=== PATIENT | female | born 1950 | race Caucasian/White ===

== ENCOUNTER → 2019-05-19 | Outpatient (CLI) | payer MEDICARE, OTHER ==
[2019-05-19 15:20] LABS: Basophils % (A) 0 %; Eosinophils # (A) 0.1 k/uL (0-0.7); Eosinophils % (A) 3 %; HCT 40.3 % (34.0-46.0); HGB 13.7 gm/dL (11.4-16.0); Lymphocytes % (A) 21 %; MCH 31.5 pg (25.0-35.0); MCV 92.5 fL (80.0-100.0); Mean Platelet Volume 6.6; Monocytes # (A) 0.3 k/uL (0-1.0); Monocytes % (A) 5 %; Neutrophils # (A) 3.4 k/uL (1.3-7.7); Neutrophils % (A) 69 %; Platelet Count 155 k/uL (150-450); RBC 4.35 m/uL (3.80-5.40); RDW 13.8 % (11.5-15.5); WBC 4.9 k/uL (3.8-10.6)
[2019-05-19 15:26] LABS: Partial Thromboplastin Time 26.4 sec (22.0-30.0); Prothrombin Time 10.3 sec (9.0-12.0)
[2019-05-19 19:23] LABS: African American GFR (CKD) 54.2 (60.0-200.0); Anion Gap 9.4 mmol/L (4.00-12.00); Carbon Dioxide 24.6 mmol/L (21.6-31.8); Potassium 4.6 mmol/L (3.5-5.5)
== END | disposition home or self-care (01) ==
LOC: LABWHC1 14:12
PROVIDERS: ATTEND Internal Medicine Nephrology
DX: R80.9 Proteinuria, unspecified (principal)
CPT/HCPCS: 36415; 80051; 82565; 84520; 85025; 85610; 85730

== ENCOUNTER 2019-05-21 09:13 | Day surgery (SDC) | payer MEDICARE, OTHER ==
[2019-05-21 09:31] VITALS: RESP 18
[2019-05-21] MEDS ORDERED: ALPRAZolam 0.5 MG TAB PO STA (09:39)
[2019-05-21 11:31] VITALS: TEMP 97.5
--- NOTE | 2019-05-21 11:55 | P.NPCON ---
History of Present Illness - Reason for Consult chronic renal failure - History of Present Illness Reason for consultation: Chronic kidney disease History of present illness: Patient is a 69-year-old female seen in renal consultation for chronic kidney disease. Patient has chronic kidney disease stage II/3 is secondary to diabetic kidney disease. Patient states she was diagnosed with diabetes in 2003. She was noted to have proteinuria on urinalysis outpatient. She was subsequently scheduled for a kidney biopsy which was completed this morning. She is currently seen and examined in the observation unit. She denies any chest pain or shortness of breath. No hematuria or dysuria. No chest pain or shortness of breath. No edema. Hemodynamically she stable. No active complaints at this time. Patient denies regular use of nonsteroidals. Denies any family history of renal disease. Vital signs are stable. General: The patient appeared well nourished and normally developed. HEENT: Head exam is unremarkable. Neck is without jugular venous distension. LUNGS: Lungs are clear to auscultation and percussion. Breath sounds decreased. HEART: Rate and Rhythm are regular. First and second heart sounds normal. No murmurs, rubs or gallops. ABDOMEN: Abdominal exam reveals normal bowel sounds. Non-tender and non- distended. No evidence of peritonitis. EXTREMITITES: No clubbing, cyanosis, or edema. Past Medical History Past Medical History: Atrial Fibrillation, Coronary Artery Disease (CAD), Diabetes Mellitus, Hyperlipidemia, Hypertension, Osteoarthritis (OA), Renal Disease, Thyroid Disorder Additional Past Medical History / Comment(s): gout History of Any Multi-Drug Resistant Organisms: None Reported Past Surgical History: Cholecystectomy, Coronary Bypass/CABG, Orthopedic Surgery Additional Past Surgical History / Comment(s): eye surgery, shoulder surgery, parathyroidectomy, bowel surgery Past Anesthesia/Blood Transfusion Reactions: Postoperative Nausea & Vomiting (PONV) Additional Psychological History / Comment(s): claustaphobia Smoking Status: Never smoker Past Alcohol Use History: None Reported Past Drug Use History: None Reported - Past Family History Father Family Medical History: Coronary Artery Disease (CAD), Diabetes Mellitus Medications and Allergies Home Medications Medication Instructions Recorded Confirmed Type Allopurinol [Zyloprim] 100 mg PO BID 04/29/19 04/29/19 History Apixaban [Eliquis] 5 mg PO BID 04/29/19 05/21/19 History Cetirizine HCl [Zyrtec] 10 mg PO DAILY 04/29/19 05/21/19 History Diphenoxylate HCl/Atropine 2 tab PO QID PRN 04/29/19 05/21/19 History [Lomotil 2.5-0.025 mg Tablet] Ferrous Sulfate [Feosol] 325 mg PO DAILY 04/29/19 05/21/19 History Furosemide [Lasix] 40 mg PO DAILY 04/29/19 05/21/19 History Liraglutide [Victoza 2-Crow] 1.8 mg SQ DAILY 04/29/19 04/29/19 History Potassium Chloride [Klor-Con 20] 20 meq PO DAILY 04/29/19 05/21/19 History Rosuvastatin Calcium [Crestor] 40 mg PO DAILY 04/29/19 05/21/19 History metFORMIN HCL [Glucophage] 500 mg PO BID 04/29/19 04/29/19 History ALPRAZolam [Xanax] 0.5 mg PO DAILY PRN 05/08/19 05/08/19 History Acetaminophen [Tylenol Extra 500 mg PO DAILY 05/08/19 05/21/19 History Strength] Krill/Carbon-3/Dha/Epa/Lipids 1 each PO DAILY 05/08/19 05/21/19 History [Krill Oil 350 mg Softgel] Sotalol [Betapace] 80 mg PO BID 05/08/19 05/08/19 History Allergies Allergy/AdvReac Type Severity Reaction Status Date / Time Penicillins Allergy Rash/Hives Verified 05/21/19 09:35 Physical Exam Vitals: Vital Signs Temp Pulse Resp BP Pulse Ox 05/21/19 11:12 97.5 F L 72 18 139/76 97 05/21/19 10:57 74 18 133/74 96 05/21/19 10:32 78 18 142/65 96 05/21/19 10:24 76 18 115/85 97 05/21/19 09:30 97.6 F 69 18 123/63 96 Assessment and Plan Plan: Assessment: 1. Chronic kidney disease stage III most likely secondary to diabetic kidney disease. Baseline creatinine in the range of 1-1.2. 2. Proteinuria. Most likely secondary to underlying diabetic kidney disease. Status post kidney biopsy this morning. 3. Diabetes mellitus. Plan: Resume home medications. Avoid nephrotoxins. Plan for discharge this afternoon. Follow up outpatient in the next 1-2 weeks to discuss biopsy results. Thank you for the consultation. I will continue to follow the patient with you during her hospital stay.
--- NOTE | 2019-05-21 12:00 | CT ---
DATE OF EXAM: 05/21/2019 COMPARISON: NONE CT DLP: [id number] mGycm HISTORY: Proteinuria PROCEDURE: Maximal barrier technique was utilized. After informed consent, the skin overlying a suit able path to the right kidney was localized using CT guidance, the skin was prepped and draped. Lido lorena was used for local anesthesia. A skin rachel made with a scalpel. Using CT guidance, a 17-gauge needle was advanced into in position at the lateral and inferior cortex of the left kidney where coa xial placement of an 18-gauge needle was used and core biopsy obtained. Three passes made in total. Hemostasis was achieved. There was no immediate complication and patient remained in stable conditi on. Specimen submitted to Pathology. IMPRESSION: Status post CT guided core biopsy of right renal cortex, pathology pending. This procedu re performed by the undersigned.
[2019-05-21 14:02] VITALS: BP 107/57; PULSE 68
[2019-05-21] MEDS ORDERED: ONDANSETRON 4 MG/2 ML VIAL IVP PRN (14:35)
[2019-05-21 15:24] LABS: Basophils # (A) 0.1 k/uL (0-0.2); Basophils % (A) 1 %; Eosinophils # (A) 0.2 k/uL (0-0.7); Eosinophils % (A) 3 %; HCT 42.4 % (34.0-46.0); HGB 13.7 gm/dL (11.4-16.0); Lymphocytes # (A) 1.2 k/uL (1.0-4.8); Lymphocytes % (A) 21 %; MCH 29.7 pg (25.0-35.0); MCHC 32.2 g/dL (31.0-37.0); MCV 92.1 fL (80.0-100.0); Mean Platelet Volume 7.3; Monocytes # (A) 0.4 k/uL (0-1.0); Monocytes % (A) 6 %; Neutrophils # (A) 3.9 k/uL (1.3-7.7); Neutrophils % (A) 68 %; Platelet Count 169 k/uL (150-450); RDW 14.2 % (11.5-15.5); WBC 5.8 k/uL (3.8-10.6)
== END 2019-05-21 16:23 | disposition home or self-care (01) ==
LOC: RADPROMAIN 09:13 → 1SOBS 10:54 → RADPROMAIN 16:23
PROVIDERS: ATTEND Internal Medicine Nephrology
DX: I12.9 Hypertensive chronic kidney disease with stage 1 through stage 4 chronic kidney disease, or unspecified chronic kidney disease (principal); E11.22 Type 2 diabetes mellitus with diabetic chronic kidney disease; N18.9 Chronic kidney disease, unspecified; Z79.01 Long term (current) use of anticoagulants; Z79.899 Other long term (current) drug therapy
CPT/HCPCS: 36415; 77012; 85025; 86850; 86900; 86901